=== PATIENT | male | born 1995 ===

== ENCOUNTER 2020-06-09 17:27 | Inpatient (IN) | payer MEDICAID ==
[~2020-06-09] VITALS: Ht 167.6 cm; Wt 69.9 kg
[2020-06-09] MEDS ORDERED: ACETAMINOPHEN 325 MG TABLET PO PRN (17:30)
[2020-06-09] MEDS ORDERED: DOCUSATE 100 MG CAPSULE PO PRN (17:30)
[2020-06-09] MEDS ORDERED: ONDANSETRON ODT 4 MG PO PRN (17:30)
[2020-06-09] MEDS ORDERED: POLYETHYLENE GLYCOL 17 GM PACKET PO PRN (17:30)
[2020-06-09] MEDS ORDERED: NICOTINE 14MG/24 HR PATCH.TD24 TD SCH (17:30)
[2020-06-09] MEDS ORDERED: PLEASE ENTER HEIGHT AND WEIGHT MC SCH (18:00)
[2020-06-09] MEDS: PLEASE ENTER ALLERGIES MC SCH (18:00)
[2020-06-09 19:35] VITALS: BP 116/77
[2020-06-09] MEDS: DOXEPIN 25 MG CAPSULE PO SCH (22:37)
[2020-06-09] MEDS: DIVALPROEX 500 MG TABLET.DR PO SCH (22:37)
[2020-06-09] MEDS: NICOTINE 21 MG/24 HR PATCH.TD24 TD SCH (22:37)
[2020-06-09 23:35] LABS: MICROSCOPIC NOT IND
[2020-06-10] MEDS ORDERED: DIVA500T2 PO (00:12)
[2020-06-10] MEDS ORDERED: BUPR-86 PO (00:19)
[2020-06-10] MEDS: PLEASE ENTER ALLERGIES MC SCH (02:00)
[2020-06-10 07:30] VITALS: BP 145/80
[2020-06-10] MEDS: NICOTINE 21 MG/24 HR PATCH.TD24 TD SCH (08:27)
[2020-06-10] MEDS: DIVALPROEX 500 MG TABLET.DR PO SCH ×2 (08:27→19:55)
[2020-06-10] MEDS: DOXEPIN 25 MG CAPSULE PO SCH (19:55)
[2020-06-10 20:05] VITALS: BP 107/66
[2020-06-11 07:34] VITALS: BP 122/80
[2020-06-11] MEDS: DIVALPROEX 500 MG TABLET.DR PO SCH (08:59)
[2020-06-11] MEDS: NICOTINE 21 MG/24 HR PATCH.TD24 TD SCH (08:59)
[2020-06-11] MEDS ORDERED: NICO-487 TD (11:48)
[2020-06-11] MEDS ORDERED: BUPR-86 PO (11:48)
[2020-06-11] MEDS ORDERED: DOXE25CA PO (11:48)
[2020-06-11] MEDS ORDERED: DIVA-61 PO (11:48)
== END 2020-06-11 12:38 | disposition home or self-care (01) | DRG 753 ==
LOC: 3E 17:27
PROVIDERS: ADMIT Psychiatry & Neurology Psychosomatic Medicine; ATTEND Psychiatry & Neurology Psychosomatic Medicine
DX: F31.30 Bipolar disorder, current episode depressed, mild or moderate severity, unspecified (principal); F10.20 Alcohol dependence, uncomplicated; G47.00 Insomnia, unspecified; F17.200 Nicotine dependence, unspecified, uncomplicated; J45.909 Unspecified asthma, uncomplicated; R45.851 Suicidal ideations; F19.10 Other psychoactive substance abuse, uncomplicated
CPT/HCPCS: 81003; 93005; Q0177